=== PATIENT | female | born 2000 | race Caucasian/White ===

== ENCOUNTER 2022-07-15 20:37 | Emergency (ER) | payer SELFPAY ==
[~2022-07-15] VITALS: Ht 170.2 cm; Wt 100.0 kg
[2022-07-15] MEDS ORDERED: LORAZEPAM 1MG TABLET PO ONE (21:00)
[2022-07-15 22:50] VITALS: BP 113/66
== END 2022-07-15 22:54 | disposition home or self-care (01) ==
LOC: ER 20:37
DX: T40.711A Poisoning by cannabis, accidental (unintentional), initial encounter (principal); F41.9 Anxiety disorder, unspecified; Y92.018 Other place in single-family (private) house as the place of occurrence of the external cause
CPT/HCPCS: 99283